=== PATIENT | male | born 1935 | race Caucasian/White ===

== ENCOUNTER 2016-03-21 10:44 | Emergency (ER) | payer MEDICARE, BC ==
[~2016-03-21] VITALS: Ht 180.3 cm; Wt 75.0 kg
[2016-03-21 10:46] VITALS: BP 113/59; PULSE 75; RESP 17; TEMP 97.5; O2SAT 99
[2016-03-21] MEDS ORDERED: SODIUM CHLORIDE 0.9% FLUSH 5 ML FLUSH IVF PRN (11:15)
--- NOTE | 2016-03-21 11:20 | PD ---
HPI Chief Complaint: General Weakness Time Seen by Provider: 11:08 Travel History International Travel<30 days: No Contact w/Intl Traveler<30days: No Traveled to known affect area: No History of Present Illness HPI This patient has Alzheimer's and is brought in by a relative. The chief complaint is generalized weakness. Duration 2 days. No fever or vomiting or diarrhea. The patient states that he feels fine. He has no idea why he is here. No alleviating factors. Symptoms severity is moderate. PFSH Past Medical History Cardiovascular Problems: Yes (HTN, CHOLESTEROL) Social History Alcohol Use: No Tobacco Use: No Substance Use: No Allergies-Medications (Allergen,Severity, Reaction): Coded Allergies: No Known Allergies (Unverified , 03/21/16) Reported Meds & Prescriptions Reported Meds & Active Scripts Active Cipro (Ciprofloxacin HCl) 500 Mg Tab 500 Mg PO BID Reported Hydrochlorothiazide 12.5 Mg Cap 12.5 Mg PO DAILY Amlodipine (Amlodipine Besylate) 10 Mg Tab 10 Mg PO DAILY Benazepril (Benazepril HCl) 20 Mg Tab 20 Mg PO BID Crestor (Rosuvastatin Calcium) 10 Mg Tab 10 Mg PO DAILY Donepezil 10 Mg Tab 10 Mg PO HS Review of Systems ROS Limitations: Clinical Condition, Poor Historian Physical Exam Narrative GENERAL: Well-nourished, well-developed patient in no apparent distress. SKIN: Warm and dry. HEAD: Atraumatic. Normocephalic. EYES: Pupils equal and round. No scleral icterus. No injection or drainage. ENT: No nasal bleeding or discharge. Mucous membranes pink and moist. NECK: Trachea midline. No JVD. CARDIOVASCULAR: Regular rate and rhythm. No murmur appreciated. RESPIRATORY: No accessory muscle use. Clear to auscultation. Breath sounds equal bilaterally. GASTROINTESTINAL: Abdomen soft, non-tender, nondistended. Hepatic and splenic margins not palpable. MUSCULOSKELETAL: No obvious deformities. No clubbing. No cyanosis. No edema. NEUROLOGICAL: Awake and alert. No obvious cranial nerve deficits. Motor grossly within normal limits. Normal speech. PSYCHIATRIC: Appropriate mood and affect; insight and judgment poor. Data Data Last Documented VS Vital Signs Date Time Temp Pulse Resp B/P Pulse Ox O2 Delivery O2 Flow Rate FiO2 03/21/16 10:46 97.5 75 17 113/59 99 Orders Basic Metabolic Panel (Bmp) (03/21/16 11:15) Complete Blood Count With Diff (03/21/16 11:15) Urinalysis - C+S If Indicated (03/21/16 11:15) Iv Access Insert/Monitor (03/21/16 11:15) Sodium Chloride 0.9% Flush (Ns Flush) (03/21/16 11:15) Urine Culture (03/21/16 11:35) Sodium Chlor 0.9% 1000 Ml Inj (Ns 1000 M (03/21/16 13:00) Labs Laboratory Tests Test 03/21/16 11:35 White Blood Count 7.8 TH/MM3 Red Blood Count 4.55 MIL/MM3 Hemoglobin 14.2 GM/DL Hematocrit 41.6 % Mean Corpuscular Volume 91.5 FL Mean Corpuscular Hemoglobin 31.3 PG Mean Corpuscular Hemoglobin 34.2 % Concent Red Cell Distribution Width 11.3 % Platelet Count 195 TH/MM3 Mean Platelet Volume 8.3 FL Neutrophils (%) (Auto) 70.0 % Lymphocytes (%) (Auto) 18.1 % Monocytes (%) (Auto) 10.1 % Eosinophils (%) (Auto) 0.9 % Basophils (%) (Auto) 0.9 % Neutrophils # (Auto) 5.4 TH/MM3 Lymphocytes # (Auto) 1.4 TH/MM3 Monocytes # (Auto) 0.8 TH/MM3 Eosinophils # (Auto) 0.1 TH/MM3 Basophils # (Auto) 0.1 TH/MM3 CBC Comment DIFF FINAL Differential Comment Urine Collection Type CLEAN CATCH Urine Color YELLOW Urine Turbidity CLEAR Urine pH 5.5 Urine Specific Gracey 1.013 Urine Protein NEG mg/dL Urine Glucose (UA) NEG mg/dL Urine Ketones NEG mg/dL Urine Occult Blood MOD Urine Nitrite NEG Urine Bilirubin NEG Urine Leukocyte Esterase LARGE Urine RBC 10-14 /hpf Urine WBC 25-49 /hpf Urine Squamous Epithelial 0-5 /hpf Cells Urine Transitional Epithelial 0-5 /hpf Cells Microscopic Urinalysis Comment CULTURE INDICATED Urine Collection Time 11:35 Sodium Level 139 MEQ/L Potassium Level 4.3 MEQ/L Chloride Level 99 MEQ/L Carbon Dioxide Level 29.2 MEQ/L Anion Gap 11 MEQ/L Blood Urea Nitrogen 58 MG/DL Creatinine 2.00 MG/DL Estimat Glomerular Filtration 32 ML/MIN Rate Random Glucose 129 MG/DL Calcium Level 9.6 MG/DL MDM Medical Decision Making Medical Screen Exam Complete: Yes Emergency Medical Condition: Yes Medical Record Reviewed: Yes Differential Diagnosis Exacerbation of dementia, UTI, electrolyte abnormality Narrative Course I have reviewed the patient's electronic medical record. Patient has normal vital signs. Other than dementia his exam is normal. The relative says he is weak and can't walk. However I walked him around the department. He has a bit of unsteadiness but ambulates. I am recommending walker use and he stay with relatives until placement can be discussed with primary physician. Urinalysis shows findings consistent with UTI and I wrote him 5 days of Cipro CBC normal Metabolic profile shows some azotemia consistent with dehydration. For that I'm giving him a liter normal saline IV and recommending he stop his diuretic for now until his physician can reevaluate Diagnosis Primary Impression: Generalized weakness Additional Impressions: UTI (urinary tract infection) Qualified Code: N30.00 - Acute cystitis without hematuria Dehydration, mild Additional Instructions: The patient was advised to follow up with their physician and return if they worsen. Stop hydrochlorothiazide Use walker Recommending stay with relatives until primary physician can assist with placement issues Med/Other Pt SpecificInfo: Prescription(s) given Scripts Ciprofloxacin (Cipro)500 Mg [id number] Mg PO BID #10 TAB Ref 0 Prov:Gurpreet Jung MD 03/21/16 Disposition: 01 DISCHARGE HOME Condition: Stable Gurpreet Jung MD Mar 21, 2016 11:20
[2016-03-21] MEDS ORDERED: BENA20TA PO (11:23)
[2016-03-21] MEDS ORDERED: ROSU10 PO (11:23)
[2016-03-21] MEDS ORDERED: DONE10TA7 PO (11:23)
[2016-03-21] MEDS ORDERED: AMLO10TA2 PO (11:23)
[2016-03-21] MEDS ORDERED: HYDR12.57 PO (11:23)
[2016-03-21 11:47] LABS: GLUCOSE,URINE NEG (NEG); KETONE, URINE NEG (NEG); NITRITE,URINE NEG (NEG); PH, URINE 5.5 (5.0-8.5)
[2016-03-21 11:49] LABS: AUTOMATED NEUTROPHIL # 5.4 TH/MM3 (1.8-7.7); BASOPHIL # 0.1 TH/MM3 (0-0.2); BASOPHIL % 0.9 % (0.0-2.0); EOSINOPHIL # 0.1 TH/MM3 (0-0.4); EOSINOPHIL % 0.9 % (0.0-4.0); HEMATOCRIT 41.6 % (39.0-51.0); HEMO FLAGS DIFF FINAL; LYMPH % 18.1 % (9.0-44.0); LYMPHOCYTE # 1.4 TH/MM3 (1.0-4.8); MEAN CELL VOLUME 91.5 FL (80.0-100.0); MEAN CORPUSCULAR HEMOGLOBIN 31.3 PG (27.0-34.0); MEAN CORPUSCULAR HGB CONC 34.2 % (32.0-36.0); MONO % 10.1 % (0.0-8.0); PLATELET COUNT 195 TH/MM3 (150-450); RED BLOOD COUNT 4.55 MIL/MM3 (4.50-5.90); RED CELL DISTRIBUTION WIDTH 11.3 % (11.6-17.2); WHITE BLOOD COUNT 7.8 TH/MM3 (4.0-11.0)
[2016-03-21 11:55] LABS: BLOOD, URINE MOD (NEG)
[2016-03-21 11:58] LABS: POTASSIUM 4.3 MEQ/L (3.5-5.1)
[2016-03-21 11:59] LABS: METHOD OF COLLECTION CLEAN CATCH; URINE COLOR YELLOW (YELLW/STRAW)
[2016-03-21 12:00] LABS: COMMENT (UR) CULTURE INDICATED; CULTURE IF INDICATED CULTURE INDICATED; SQUAMOUS EPITHELIAL CELL URINE 0-5 /hpf (0-5); TRANSITIONAL EPI CELLS, URINE 0-5 /hpf
[2016-03-21 12:01] LABS: BICARBONATE 29.2 MEQ/L (21.0-32.0)
[2016-03-21] MEDS ORDERED: SODIUM CHLOR 0.9% 1000 ML INJ 1,000 ML IV ONE (13:00)
[2016-03-21] MEDS ORDERED: CIPR-9 PO (13:03)
[2016-03-21 13:30] VITALS: BP 116/60; PULSE 74; RESP 16; O2SAT 99
== END 2016-03-21 14:22 | disposition home or self-care (01) ==
LOC: PHED 10:44
DX: N39.0 Urinary tract infection, site not specified (principal); R53.1 Weakness; E86.0 Dehydration; I10 Essential (primary) hypertension; E78.00 Pure hypercholesterolemia, unspecified
CPT/HCPCS: 80048; 81001; 85025; 87086; 99284; J7030